=== PATIENT | female | born 1965 | race African-American/Black ===

== ENCOUNTER → 2017-04-12 | Outpatient (CLI) | payer MEDICARE, BC ==
--- NOTE | 2017-04-12 17:10 | RADIOLOGY REPORT (SQ) ---
EXAM DESCRIPTION: NM 3 PHASE BONE SCAN COMPLETED DATE/TIME: 04/12/2017 2:53 pm REASON FOR STUDY: PRIMARY OSTEOARTHRITIS, RIGHT KNEE (M17.11) M79.661 PAIN IN RIGHT LOWER LEG COMPARISON: No available imaging studies for comparison. RADIONUCLIDE AND DOSE: 20 millicuries Tc99m HDP. The route of agent administration: Intravenous. ADDITIONAL DRUGS AND DOSES: None. TECHNIQUE: Following injection of the radiopharmaceutical, serial blood flow images acquired. Equil ibrium blood pool images then acquired. Routine delayed images at 3 hours acquired of the areas of c linical concern with additional focused images as needed. AREA OF INTEREST: Knees LIMITATIONS: None. FINDINGS: VASCULAR FLOW IMAGES: There is minimal hyperemia in the left upper calf. BLOOD POOL IMAGES: There is slightly increased perfusion left upper calf. BONES: There is focal increased uptake in region of the articular surface of the right medial femoral condyle. KIDNEYS: Not included. OTHER: No other significant finding. IMPRESSION: 1. Questionable hyperemia increased blood pool left upper calf. It is possible that th is appearance is secondary to positioning. 2. There is focal increased uptake in the region articular surface the right medial femoral condyle suggesting degenerative change. COMMENT: Quality measure 147: Current bone scan is compared with any available plain radiographs, p rior bone scans, and CT/MRI. TECHNICAL DOCUMENTATION: JOB ID: [id number] [employer]- All Rights Reserved
== END ==
LOC: RAD 09:34
PROVIDERS: ATTEND Family Medicine
DX: M17.11 Unilateral primary osteoarthritis, right knee (principal)
CPT/HCPCS: 78315; A9561; Q9969

== ENCOUNTER 2017-11-16 20:28 | Emergency (ER) | payer MEDICARE, BC ==
[2017-11-16] MEDS ORDERED: ONDANSETRON 4 MG TAB.RAPDIS PO ONE (21:47)
[2017-11-16] MEDS ORDERED: MECLIZINE HCL 25 MG TABLET PO ONE (21:48)
--- NOTE | 2017-11-16 21:50 | ER Document Report ---
ED General - General Chief Complaint: Chest Pain Stated Complaint: CHEST PAIN Time Seen by Provider: 11/16/17 21:39 Notes: Patient is a 52-year-old female that comes to the emergency department with complaints of productive cough worsening for 1 week, dizziness with sensation of the world spinning around her intermittently, intermittent nausea with the dizziness, and generalized discomfort in her chest which is worse when she takes a deep breath. She now is coughing up intermittent green sputum. She denies fever or chills, vomiting, passing out. She does have a history of asthma, has been using her home inhaler and nebulizer slightly more than usual. Past medical history includes hypertension, pacemaker/defibrillator, she has never had an NC. She follows with cardiology Dr. Hernandez. TRAVEL OUTSIDE OF THE [place] IN LAST 30 DAYS: No COUNTRY TRAVELED TO/FROM: [facility] - Related Data Allergies/Adverse Reactions: sulfamethoxazole [From ] Adverse Reaction (Mild, Verified 11/18/14 08:34) trimethoprim [From ] Adverse Reaction (Mild, Verified 11/18/14 08:34) Past Medical History - General Information source: Patient - Social History Smoking Status: Never Smoker Frequency of alcohol use: None Drug Abuse: None Lives with: Alone Family History: CAD - sisters from [place] at ages 61 and 53, mom post [place] at 76 yo, Other - + CAD, DVT - Past Medical History Cardiac Medical History: Reports: Hx Atrial Fibrillation, Hx Coronary Artery Disease - hyperlipedemia, Hx Hypercholesterolemia, Hx Hypertension Denies: Hx Heart Attack Pulmonary Medical History: Reports: Hx Asthma, Hx Pneumonia Denies: Hx Bronchitis, Hx COPD Neurological Medical History: Reports: Hx Migraine. Denies: Hx Cerebrovascular Accident, Hx Seizures GI Medical History: Reports: Hx Gastroesophageal Reflux Disease Musculoskeltal Medical History: Denies Hx Arthritis Psychiatric Medical History: Reports: Hx Depression Past Surgical History: Reports: Hx Cardiac Surgery - pacer/defibrillator, Hx Orthopedic Surgery, Hx Pacemaker. Denies: Hx Hysterectomy - Immunizations Hx Diphtheria, Pertussis, Tetanus Vaccination: Yes Hx Pneumococcal Vaccination: 07/09/13 Review of Systems - Review of Systems Constitutional: No symptoms reported EENT: See HPI Cardiovascular: See HPI Respiratory: See HPI Gastrointestinal: See HPI Genitourinary: No symptoms reported Female Genitourinary: No symptoms reported Musculoskeletal: No symptoms reported Skin: No symptoms reported Hematologic/Lymphatic: No symptoms reported Neurological/Psychological: See HPI Physical Exam - Vital signs Vitals: Temp Pulse Resp BP Pulse Ox 98.6 F 62 15 143/89 H 96 11/16/17 21:24 11/16/17 21:24 11/16/17 21:24 11/16/17 21:24 11/16/17 21:24 - General General appearance: Appears well In distress: None - HEENT Head: Normocephalic, Atraumatic Eyes: Normal Extraocular movements intact: Yes Eyelashes: Normal Pupils: PERRL Ears: Normal External canal: Normal Tympanic membrane: Normal Sinus: Normal Nasal: Normal Mouth/Lips: Normal Mucous membranes: Normal Pharynx: Normal Neck: Normal - Respiratory Respiratory status: No respiratory distress. No: Respiratory distress, Retractions, Tachypnea Breath sounds: Nonproductive cough - Congested sounding nonproductive cough, intermittent. No: Rhonchi, Stridor, Wheezing - Cardiovascular Rhythm: Regular. No: Tachycardia Heart sounds: Normal auscultation, S1 appreciated, S2 appreciated - Abdominal Inspection: Normal Tenderness: Nontender. No: Tender, Guarding - Back Back: Normal, Nontender. No: Tender - Extremities General upper extremity: Normal inspection, Nontender, Normal strength, Normal temperature General lower extremity: Normal inspection, Nontender, Normal strength, Normal temperature. 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 No ST segment changes. Borderline QTc. However compared to prior to this has T-wave inversions in the same leads without significant change, similar QTC, no significant difference compared to prior. Patient with cold symptoms for 1 week with worsening congestive cough and now she states she has green sputum production. She does have congested cough on exam. She has no wheezing or respiratory distress, no hypoxia. No lower extremity swelling. Chest pain is worse with cough and with deep breathing. Patient does not have nystagmus or any signs of significant vertigo. Normal neurological exam. Treating with meclizine, workup pending. On reevaluation after Zofran and meclizin patient denies any sensation of spinning or dizziness. She still has congested cough. Chest x-ray, CBC, chemistry, unremarkable. Troponin indeterminate 0.021, this is identical to prior. Clinical picture is consistent with bronchitis with worsening productive cough and vestibular neuritis. Reevaluated patient at bedside, recommended cycle troponin, patient declined, request to leave. I feel this is appropriate because patient has had persistent symptoms for the past 2 days, low suspicion of ACS, PE, or life- threatening etiology. Discussed treatments, coverage because of productive cough in asthma patient, follow-up, return precautions, patient states understanding and agreement. - Vital Signs Vital signs: Temp Pulse Resp BP Pulse Ox 98.6 F 62 24 H 138/78 H 96 11/17/17 00:00 11/16/17 21:24 11/17/17 00:00 11/17/17 00:00 11/17/17 00:00 - Laboratory Result Diagrams: 11/16/17 22:55 11/16/17 22:55 Laboratory results interpreted by me: 11/16/17 22:55 Sodium 145.6 H Discharge - Discharge Clinical Impression: Productive cough, Dizziness, Vertigo Condition: Stable Disposition: HOME, SELF-CARE Additional Instructions: Your workup does not show any concerning abnormalities at this time. Your symptoms are consistent with bronchitis, developing vertigo from suspected labyrinthitis, and because of your developing productive cough we are covering you for potential pneumonia. Take antibiotics as prescribed, take the meclizine for the dizziness/vertigo as prescribed for the next several days, take the Zofran if needed for nausea, take the syrup if needed for cough (usually at night, do not next with stating medications, do not drive while taking). Follow-up with primary care. Return if you worsen including difficulty breathing, severe dizziness, vomiting, chest pain, passing out, or any other concerning symptoms. Prescriptions: Hydrocodone Bit/Homatropine [Hycodan Syrup 5-1.5 mg/5 ml Ud Cup] 5 ml PO Q4HP PRN #120 ml PRN Reason: Doxycycline Hyclate 100 mg PO BID #14 capsule Meclizine HCl [Bonine] 25 mg PO TID #24 tab.chew Referrals: JOSE ANTHONY MD [Primary Care Provider] - Follow up as needed
--- NOTE | 2017-11-16 23:20 | RADIOLOGY REPORT (SQ) ---
EXAM DESCRIPTION: XR CHEST 1 VIEW CLINICAL HISTORY: 52 years Female, cough, shortness of breath, chest pain COMPARISON: CR, report only, December 2013 NUMBER OF VIEWS/TECHNIQUE: 1/AP FINDINGS: Adequate lung volume, clear parenchyma, normal cardiac silhouette, and intact bony thorax. Left cardiac stimulator with leads. Likely benign focal sclerotic lesion/bone island of the right humeral head. IMPRESSION: No acute cardiopulmonary findings.
[2017-11-16 23:21] LABS: ALANINE AMINOTRANSFERASE 41 U/L (9-52); ALBUMIN 4.3 g/dL (3.5-5.0); ALKALINE PHOSPHATASE 110 U/L (38-126); ANION GAP 12 (5-19); ASPARTATE AMINO TRANSFERASE 25 U/L (14-36); BILIRUBIN,DIRECT 0.2 mg/dL (0.0-0.4); BILIRUBIN,TOTAL 0.3 mg/dL (0.2-1.3); BLOOD UREA NITROGEN 17 mg/dL (7-20); CALCIUM 9.3 mg/dL (8.4-10.2); CARBON DIOXIDE 28 mmol/L (22-30); CHLORIDE 106 mmol/L (98-107); CREATINE KINASE 92 U/L (30-135); GLUCOSE 92 mg/dL (75-110); POTASSIUM 3.8 mmol/L (3.6-5.0); SODIUM 145.6 mmol/L (137-145); TOTAL PROTEIN 6.8 g/dL (6.3-8.2)
[2017-11-16 23:26] LABS: ABSOLUTE BASOPHILS # (AUTO) 0.1 10^3/uL (0.0-0.2); ABSOLUTE EOSINOPHILS # (AUTO) 0.3 10^3/uL (0.0-0.6); ABSOLUTE LYMPHOCYTES (AUTO) 2.3 10^3/uL (0.5-4.7); ABSOLUTE MONOCYTES (AUTO) 0.3 10^3/uL (0.1-1.4); ABSOLUTE NEUT (AUTO) 3.3 10^3/uL (1.7-8.2); BASOPHILS % (AUTO) 1.1 % (0-2); EOSINOPHILS % (AUTO) 4.1 % (0-6); HEMATOCRIT 44.1 % (36.0-47.0); HEMOGLOBIN 14.5 g/dL (12.0-15.5); LYMPHOCYTES % (AUTO) 36.6 % (13-45); MEAN CORPUSCULAR HEMOGLOBIN 28.5 pg (27.0-33.4); MEAN CORPUSCULAR HGB CONC 32.9 g/dL (32.0-36.0); MEAN CORPUSCULAR VOLUME 87 fl (80-97); MONOCYTES % (AUTO) 4.7 % (3-13); PLATELET COUNT 193 10^3/uL (150-450); RED BLOOD COUNT 5.09 10^6/uL (3.72-5.28); RED CELL DISTRIBUTION WIDTH 13.9 % (11.5-14.0); SEGMENTED NEUTROPHILS % (AUTO) 53.5 % (42-78); TOTAL CELLS COUNTED % (AUTO) 100 %; WHITE BLOOD COUNT 6.2 10^3/uL (4.0-10.5)
[2017-11-16 23:32] LABS: CREATINE KINASE MB 0.73 ng/mL (<4.55); TROPONIN I 0.021 ng/mL
[2017-11-17 00:03] VITALS: BP 138/78
--- NOTE | 2017-11-17 07:11 | EKG REPORT ---
SEVERITY:- ABNORMAL ECG - SINUS RHYTHM JAVIER, CONSIDER BIATRIAL ABNORMALITIES PROBABLE LVH WITH SECONDARY REPOL ABNRM REPOL ABNRM, PROBABLE ISCHEMIA, ANT-LAT LEADS BORDERLINE PROLONGED QT INTERVAL : Confirmed by: Estuardo Goins MD 17-Nov-2017 07:11:15
== END 2017-11-17 00:09 | disposition home or self-care (01) ==
LOC: ER 20:28
DX: R05 Cough (principal); R42 Dizziness and giddiness; R07.9 Chest pain, unspecified; I48.91 Unspecified atrial fibrillation; E78.00 Pure hypercholesterolemia, unspecified; I10 Essential (primary) hypertension; K21.9 Gastro-esophageal reflux disease without esophagitis; I25.10 Atherosclerotic heart disease of native coronary artery without angina pectoris; Z88.3 Allergy status to other anti-infective agents; Z95.810 Presence of automatic (implantable) cardiac defibrillator
CPT/HCPCS: 93005; 99285; 36415; 82553; 82550; 85025; 80053; 84484; 71045; 93010; A9270 ×2; S0119

== ENCOUNTER → 2018-02-13 | Outpatient (CLI) | payer MEDICARE, BC ==
--- NOTE | 2018-02-13 15:01 | RADIOLOGY REPORT (SQ) ---
EXAM DESCRIPTION: CT ABD/PELVIS WITH IV ONLY COMPLETED DATE/TIME: 02/13/2018 2:05 pm REASON FOR STUDY: R10.0 ACUTE ABDOMEN R10.0 ACUTE ABDOMEN COMPARISON: None. TECHNIQUE: CT scan of the abdomen and pelvis performed using helical scanning technique with dynamic intravenous contrast injection. No oral contrast. Images reviewed with lung, soft tissue, and bone windows. Reconstructed coronal and sagittal MPR images reviewed. Delayed images for evaluation of the urinary system also acquired. All images stored on PACS. All CT scanners at this facility use dose modulation, iterative reconstruction, and/or weight based d osing when appropriate to reduce radiation dose to as low as reasonably achievable (ALARA). [facility]: Dose Right [facility]: CareDose [facility]: Dose Right [facility]: Teradose 4D [facility]: Shippter CONTRAST TYPE AND DOSE: contrast/concentration: Isovue 350.00 mg/ml; Total Contrast Delivered: 94.0 ml; Total Saline Delivered: 71.0 ml RENAL FUNCTION: Creatinine: 0.5 RADIATION DOSE: CT Rad equipment meets quality standard of care and radiation dose reduction techniq ues were employed. CTDIvol: 7.8 - 9.0 mGy. DLP: 860 mGy-cm.. LIMITATIONS: None. FINDINGS: LOWER CHEST: Ground-glass infiltrate within the lingula. Eventration left hemidiaphragm. Pacer defibrillator lead in place. LIVER: No abnormality. SPLEEN: No abnormality. PANCREAS: No abnormality. GALLBLADDER: No abnormality. ADRENAL GLANDS: No abnormality. RIGHT KIDNEY AND URETER: There is nonobstructive calculus in the lower pole right kidney. Rounded ar ea decreased attenuation posterior cortex of upper pole right kidney could represent cortical cyst. LEFT KIDNEY AND URETER: There is a nonobstructive calculus lower pole left kidney. AORTA AND VESSELS: No aneurysm. No dissection. Renal arteries, SMA, celiac without stenosis. Atheros clerotic change origin of celiac artery. RETROPERITONEUM: No retroperitoneal adenopathy, hemorrhage or masses. BOWEL AND PERITONEAL CAVITY: No masses or inflammatory changes. No free fluid or peritoneal masses. APPENDIX: Normal. PELVIS: Urinary bladder: No abnormality seen. ABDOMINAL WALL: No masses. No hernias. BONES: No significant or acute findings. IMPRESSION: Lingular infiltrate or atelectasis. Cortical cyst upper pole right kidney. Nonobstruct maia bilateral renal calculi . TECHNICAL DOCUMENTATION: JOB ID: [id number] Quality ID # [id number]: Final reports with documentation of one or more dose reduction techniques (e.g., Au tomated exposure control, adjustment of the mA and/or kV according to patient size, use of iterative reconstruction technique) 2010 [employer]- All Rights Reserved Reading location - IP/workstation name: [email or web address]
== END ==
LOC: RAD 13:39
PROVIDERS: ATTEND Specialist
DX: R10.0 Acute abdomen (principal)
CPT/HCPCS: 74177; 82565

== ENCOUNTER 2019-04-20 18:30 | Emergency (ER) | payer MEDICARE, BC ==
--- NOTE | 2019-04-20 18:56 | ER Document Report ---
ED Medical Screen (RME) - General Chief Complaint: Shortness Of Breath Stated Complaint: SHORTNESS OF BREATH Time Seen by Provider: 04/20/19 18:52 Primary Care Provider: KIKO HOLLAND MD [Primary Care Provider] - Follow up as needed Information source: Patient Notes: Patient presents complaining of shortness of breath for the past 2 days. Patient does report mild cough. No chest pain no fever. Patient states at nighttime when she lays down she notices wheezing. Patient also complains of occasional dizziness and weakness. Patient states her blood pressure has been running low recently although is normal in triage at this time. I have greeted and performed a rapid initial assessment of this patient. A comprehensive ED assessment and evaluation of the patient, analysis of test results and completion of the medical decision making process will be conducted by additional ED providers. TRAVEL OUTSIDE OF THE [place] IN LAST 30 DAYS: No COUNTRY TRAVELED TO/FROM: [facility] - Related Data Allergies/Adverse Reactions: sulfamethoxazole [From [facility]] Adverse Reaction (Mild, Verified 11/18/14 08:34) trimethoprim [From Feb] Adverse Reaction (Mild, Verified 11/18/14 08:34) Home Medications: albuterol, omeprazol, trazodone, wellbutrin, fioricet, aspirin, prazosin, flonase, celebrex, cymbalta, verapamil, simvastatin, tizanidine, spiriva, singulair, volataren Past Medical History - Social History Chew tobacco use (# tins/day): No Frequency of alcohol use: None Drug Abuse: None - Past Medical History Cardiac Medical History: Reports: Hx Atrial Fibrillation, Hx Coronary Artery Disease - hyperlipedemia, Hx Hypercholesterolemia, Hx Hypertension Denies: Hx Heart Attack Pulmonary Medical History: Reports: Hx Asthma, Hx Pneumonia Denies: Hx Bronchitis, Hx COPD Neurological Medical History: Reports: Hx Migraine. Denies: Hx Cerebrovascular Accident, Hx Seizures Renal/ Medical History: Denies: Hx Peritoneal Dialysis GI Medical History: Reports: Hx Gastroesophageal Reflux Disease Musculoskeltal Medical History: Denies Hx Arthritis Psychiatric Medical History: Reports: Hx Depression Past Surgical History: Reports: Hx Cardiac Surgery - pacer/defibrillator, Hx Orthopedic Surgery, Hx Pacemaker. Denies: Hx Hysterectomy - Immunizations Hx Diphtheria, Pertussis, Tetanus Vaccination: Yes Physical Exam - Vital signs Vitals: Temp Pulse Resp BP Pulse Ox 97.9 F 74 21 H 120/86 H 100 04/20/19 18:34 04/20/19 18:34 04/20/19 18:34 04/20/19 18:34 04/20/19 18:34 - Respiratory Respiratory status: No respiratory distress. No: Labored, Tachypnea Chest status: Nontender Breath sounds: Normal Chest palpation: Normal Course - Vital Signs Vital signs: Temp Pulse Resp BP Pulse Ox 97.9 F 74 21 H 120/86 H 100 04/20/19 18:34 04/20/19 18:34 04/20/19 18:34 04/20/19 18:34 04/20/19 18:34 Doctor's Discharge - Discharge Referrals: KIKO HOLLAND MD [Primary Care Provider] - Follow up as needed
--- NOTE | 2019-04-20 19:21 | ER Document Report ---
ED General - General Chief Complaint: Shortness Of Breath Stated Complaint: SHORTNESS OF BREATH Time Seen by Provider: 04/20/19 18:52 Primary Care Provider: KIKO HOLLAND MD [EMERITUS] - Follow up as needed CHARMAINE STROUD MD [ACTIVE STAFF] - Follow up tomorrow Notes: Patient is a 53 year old female with CHF that presents to the emergency department for chief complaint of shortness of breath, and orthopnea. Patient states his been having symptoms over the past several days with associated mild cough. She denies any associated chest pain, nausea, vomiting, fevers, chills, night sweats. She states she does have asthma and that she was having wheezing particular with lying down. She felt that is getting a little bit worse today so she decided come to the emergency department to be further evaluated. She states she occasionally feels lightheaded, but denies any syncopal episodes. Past Medical History: CHF, hypertrophic cardiomyopathy, hypertension, hyperlipidemia, asthma Past Surgical History: AICD pacemaker Social History: Denies tobacco, alcohol or drug use. Family History: Reviewed and noncontributory for presenting illness Allergies: Reviewed, see documented allergy list. REVIEW OF SYSTEMS: Other than noted above, the 12 point review of systems was reviewed with the patient and were negative, all pertinent findings are included in the HPI. PHYSICAL EXAMINATION: Vital signs reviewed, nursing noted reviewed. GENERAL: Well-appearing, well-nourished and in no acute distress. HEAD: Atraumatic, normocephalic. EYES: Eyes appear normal, extraocular movements intact, sclera anicteric, conjunctiva are normal. ENT: nares patent, oropharynx clear without exudates. Moist mucous membranes. NECK: Normal range of motion, supple without lymphadenopathy, no JVD LUNGS: Breath sounds clear to auscultation bilaterally and equal. No wheezes rales or rhonchi. HEART: Regular rate and rhythm without murmurs ABDOMEN: Soft, nontender, normoactive bowel sounds. No rebound, guarding, or rigidity. No masses appreciated. EXTREMITIES: Nontender, good range of motion, trace bilateral lower extremity pitting edema. NEUROLOGICAL: No focal neurological deficits. Moves all extremities spontaneously Motor and sensory grossly intact on exam. PSYCH: Normal mood, normal affect. SKIN: Warm, Dry, normal turgor, no rashes or lesions noted on exposed skin TRAVEL OUTSIDE OF THE [place] IN LAST 30 DAYS: No COUNTRY TRAVELED TO/FROM: [facility] - Related Data Allergies/Adverse Reactions: sulfamethoxazole [From ] Adverse Reaction (Mild, Verified 11/18/14 08:34) trimethoprim [From ] Adverse Reaction (Mild, Verified 11/18/14 08:34) Home Medications: albuterol, omeprazol, trazodone, wellbutrin, fioricet, aspirin, prazosin, flonase, celebrex, cymbalta, verapamil, simvastatin, tizanidine, spiriva, singulair, volataren Past Medical History - General Information source: Patient - Social History Smoking Status: Never Smoker Chew tobacco use (# tins/day): No Frequency of alcohol use: None Drug Abuse: None Family History: CAD - sisters from [place] at ages 61 and 53, mom post [place] at 76 yo, Other - + CAD, DVT Patient has suicidal ideation: No Patient has homicidal ideation: No - Past Medical History Cardiac Medical History: Reports: Hx Atrial Fibrillation, Hx Coronary Artery Disease - hyperlipedemia, Hx Hypercholesterolemia, Hx Hypertension Denies: Hx Heart Attack Pulmonary Medical History: Reports: Hx Asthma, Hx Pneumonia Denies: Hx Bronchitis, Hx COPD Neurological Medical History: Reports: Hx Migraine. Denies: Hx Cerebrovascular Accident, Hx Seizures Renal/ Medical History: Denies: Hx Peritoneal Dialysis GI Medical History: Reports: Hx Gastroesophageal Reflux Disease Musculoskeletal Medical History: Denies Hx Arthritis Psychiatric Medical History: Reports: Hx Depression Past Surgical History: Reports: Hx Cardiac Surgery - pacer/defibrillator, Hx Orthopedic Surgery, Hx Pacemaker. Denies: Hx Hysterectomy - Immunizations Hx Diphtheria, Pertussis, Tetanus Vaccination: Yes Hx Pneumococcal Vaccination: 07/09/13 Physical Exam - Vital signs Vitals: Temp Pulse Resp BP Pulse Ox 97.9 F 74 21 H 120/86 H 100 04/20/19 18:34 04/20/19 18:34 04/20/19 18:34 04/20/19 18:34 04/20/19 18:34 Course - Re-evaluation Re-evalutation: Patient seen and examined vital signs reviewed. Laboratory data and/or imaging were ordered as appropriate for the patient's presenting symptoms and complaint, with consideration of any critical or life threatening conditions that may be associated with their obtained history and exam as noted above. Patient was treated with p.o. Lasix and DuoNeb breathing treatment Results were reviewed when available and demonstrated unremarkable blood work, chest x-ray did demonstrate some pulmonary edema, mild in degree. I discussed this case with the patient's public address system mechanic, who recommended only low-dose Lasix of 10 mg daily and to follow-up with him and call for an appointment tomorrow. The patient was re-evaluated and was stable, not hypoxic Evaluation was most consistent with CHF, pulmonary edema. Results were discussed with the patient at this point, after careful consideration I feel that that patient can be discharged from the emergency department, the patient was educated treatments and reasons to return to the emergency department based on their presumed diagnosis as noted above, they were advised to followup with a primary care physician in 2-3 days. Patient was agreeable to plan of care. *Note is created using voice recognition software and may contain spelling, syntax or grammatical errors. Laboratory 04/20/19 04/20/19 04/20/19 19:00 19:35 19:35 WBC 4.7 RBC 4.78 Hgb 13.2 Hct 40.6 MCV 85 MCH 27.7 MCHC 32.5 RDW 13.7 Plt Count 179 Lymph % (Auto) 34.5 Ada % (Auto) 5.9 Eos % (Auto) 3.0 Baso % (Auto) 0.3 Absolute Neuts (auto) 2.7 Absolute Lymphs (auto) 1.6 Absolute Monos (auto) 0.3 Absolute Eos (auto) 0.1 Absolute Basos (auto) 0.0 Seg Neutrophils % 56.3 Sodium 143.0 Potassium 4.1 Chloride 111 H Carbon Dioxide 25 Anion Gap 7 BUN 19 Creatinine 0.88 Est GFR ( Amer) > 60 Est GFR (MDRD) Non-Af > 60 Glucose 110 Calcium 9.4 Total Bilirubin 0.6 Direct Bilirubin 0.0 Neonat Total Bilirubin Not Reportable Neonat Direct Bilirubin Not Reportable Neonat Indirect Bili Not Reportable AST 26 ALT 21 Alkaline Phosphatase 101 Troponin I NT-Pro-B Natriuret Pep Total Protein 6.6 Albumin 3.9 Urine Color YELLOW Urine Appearance CLEAR Urine pH 5.0 Ur Specific [place] 1.025 Urine Protein NEGATIVE Urine Glucose (UA) NEGATIVE Urine Ketones NEGATIVE Urine Blood NEGATIVE Urine Nitrite NEGATIVE Urine Bilirubin NEGATIVE Urine Urobilinogen 2.0 H Ur Leukocyte Esterase NEGATIVE Urine WBC (Auto) 2 Urine RBC (Auto) 1 Squamous Epi Cells Auto 1 Urine Mucus (Auto) RARE Urine Ascorbic Acid 40 H 04/20/19 19:35 WBC RBC Hgb Hct MCV MCH MCHC RDW Plt Count Lymph % (Auto) Ada % (Auto) Eos % (Auto) Baso % (Auto) Absolute Neuts (auto) Absolute Lymphs (auto) Absolute Monos (auto) Absolute Eos (auto) Absolute Basos (auto) Seg Neutrophils % Sodium Potassium Chloride Carbon Dioxide Anion Gap BUN Creatinine Est GFR ( Amer) Est GFR (MDRD) Non-Af Glucose Calcium Total Bilirubin Direct Bilirubin Neonat Total Bilirubin Neonat Direct Bilirubin Neonat Indirect Bili AST ALT Alkaline Phosphatase Troponin I 0.014 NT-Pro-B Natriuret Pep 1450 H Total Protein Albumin Urine Color Urine Appearance Urine pH Ur Specific [place] Urine Protein Urine Glucose (UA) Urine Ketones Urine Blood Urine Nitrite Urine Bilirubin Urine Urobilinogen Ur Leukocyte Esterase Urine WBC (Auto) Urine RBC (Auto) Squamous Epi Cells Auto Urine Mucus (Auto) Urine Ascorbic Acid Chest X-Ray 04/20/19 18:55 IMPRESSION: Mild diffuse interstitial pulmonary opacity, likely mild edema in the setting of cardiomegaly. - Vital Signs Vital signs: Temp Pulse Resp BP Pulse Ox 97.9 F 74 28 H 125/76 96 04/20/19 18:34 04/20/19 18:34 04/20/19 22:00 04/20/19 22:00 04/20/19 22:00 - Laboratory Result Diagrams: 04/20/19 19:35 04/20/19 19:35 Laboratory results interpreted by me: 04/20/19 04/20/19 04/20/19 19:00 19:35 19:35 Chloride 111 H NT-Pro-B Natriuret Pep 1450 H Urine Urobilinogen 2.0 H Urine Ascorbic Acid 40 H - EKG Interpretation by Me Additional EKG results interpreted by me: EKG demonstrates sinus rhythm with a ventricular rate of 67 bpm, normal axis, QTC 494 ms, T wave inversions noted in leads I, 2, aVF, V3 through V6, compared to prior EKG without significant change. Discharge - Discharge Clinical Impression: CHF (congestive heart failure) Qualifiers: Heart failure type: other Qualified Code(s): I50.9 - Heart failure, unspecified Pulmonary edema Qualifiers: Chronicity: acute Qualified Code(s): J81.0 - Acute pulmonary edema Condition: Stable Disposition: HOME, SELF-CARE Instructions: Congestive Heart Failure ([facility]) Prescriptions: Furosemide [Lasix] 10 mg PO DAILY #7 tablet Referrals: KIKO HOLLAND MD [EMERITUS] - Follow up as needed CHARMAINE STROUD MD [ACTIVE STAFF] - Follow up tomorrow
[2019-04-20 19:30] LABS: APPEARANCE,URINE CLEAR; BILIRUBIN,URINE NEGATIVE (NEGATIVE); COLOR,URINE YELLOW; GLUCOSE, URINE NEGATIVE (NEGATIVE); KETONES,URINE NEGATIVE (NEGATIVE); LEUKOCYTE ESTERASE,URINE NEGATIVE (NEGATIVE); NITRITE,URINE NEGATIVE (NEGATIVE); PROTEIN,URINE NEGATIVE (NEGATIVE); URINE SPECIFIC GRAVITY 1.025
--- NOTE | 2019-04-20 19:34 | RADIOLOGY REPORT (SQ) ---
EXAM DESCRIPTION: CHEST 2 VIEWS COMPLETED DATE/TIME: 04/20/2019 7:21 pm REASON FOR STUDY: sob COMPARISON: 01/19/2014 EXAM PARAMETERS: NUMBER OF VIEWS: two views TECHNIQUE: Digital Frontal and Lateral radiographic views of the chest acquired. RADIATION DOSE: NA LIMITATIONS: none FINDINGS: LUNGS AND PLEURA: Mild diffuse interstitial pulmonary opacity. MEDIASTINUM AND HILAR STRUCTURES: No masses or contour abnormalities. HEART AND VASCULAR STRUCTURES: Cardiomegaly with left chest multi lead pacer defibrillator. BONES: No acute findings. HARDWARE: None in the chest. OTHER: No other significant finding. IMPRESSION: Mild diffuse interstitial pulmonary opacity, likely mild edema in the setting of cardiom egaly. TECHNICAL DOCUMENTATION: JOB ID: [id number] [employer]- All Rights Reserved Reading location - IP/workstation name: [email or web address]
[2019-04-20] MEDS ORDERED: IPRATROPIUM/ALBUTEROL 0.5-2.5 MG/3 ML AMPUL NEB ONE (19:40)
[2019-04-20 20:08] LABS: ABSOLUTE EOSINOPHILS # (AUTO) 0.1 10^3/uL (0.0-0.6); ABSOLUTE LYMPHOCYTES (AUTO) 1.6 10^3/uL (0.5-4.7); ABSOLUTE MONOCYTES (AUTO) 0.3 10^3/uL (0.1-1.4); ABSOLUTE NEUT (AUTO) 2.7 10^3/uL (1.7-8.2); BASOPHILS % (AUTO) 0.3 % (0-2); HEMATOCRIT 40.6 % (36.0-47.0); HEMOGLOBIN 13.2 g/dL (12.0-15.5); LYMPHOCYTES % (AUTO) 34.5 % (13-45); MEAN CORPUSCULAR HEMOGLOBIN 27.7 pg (27.0-33.4); MEAN CORPUSCULAR HGB CONC 32.5 g/dL (32.0-36.0); MEAN CORPUSCULAR VOLUME 85 fl (80-97); MONOCYTES % (AUTO) 5.9 % (3-13); PLATELET COUNT 179 10^3/uL (150-450); RED BLOOD COUNT 4.78 10^6/uL (3.72-5.28); RED CELL DISTRIBUTION WIDTH 13.7 % (11.5-14.0); SEGMENTED NEUTROPHILS % (AUTO) 56.3 % (42-78); TOTAL CELLS COUNTED % (AUTO) 100 %; WHITE BLOOD COUNT 4.7 10^3/uL (4.0-10.5)
[2019-04-20 20:27] LABS: ALBUMIN 3.9 g/dL (3.5-5.0); ALKALINE PHOSPHATASE 101 U/L (38-126); ANION GAP 7 (5-19); ASPARTATE AMINO TRANSFERASE 26 U/L (14-36); BILIRUBIN,TOTAL 0.6 mg/dL (0.2-1.3); BLOOD UREA NITROGEN 19 mg/dL (7-20); CALCIUM 9.4 mg/dL (8.4-10.2); CARBON DIOXIDE 25 mmol/L (22-30); CHLORIDE 111 mmol/L (98-107); GLUCOSE 110 mg/dL (75-110); POTASSIUM 4.1 mmol/L (3.6-5.0); TOTAL PROTEIN 6.6 g/dL (6.3-8.2)
[2019-04-20 20:39] LABS: TROPONIN I 0.014 ng/mL
[2019-04-20] MEDS ORDERED: FUROSEMIDE 20 MG TABLET PO ONE (21:49)
[2019-04-20 22:03] VITALS: BP 125/76
--- NOTE | 2019-04-20 22:54 | EKG REPORT ---
SEVERITY:- ABNORMAL ECG - SINUS RHYTHM LEFT ATRIAL ABNORMALITY REPOL ABNRM SUGGESTS ISCHEMIA, ANT-LAT LEADS BORDERLINE PROLONGED QT INTERVAL : Confirmed by: Jenni Jackson MD 20-Apr-2019 22:53:27
== END 2019-04-20 22:06 | disposition home or self-care (01) ==
LOC: ER 18:30
DX: I10 Essential (primary) hypertension (principal); J81.0 Acute pulmonary edema; R06.02 Shortness of breath; I48.91 Unspecified atrial fibrillation; I25.10 Atherosclerotic heart disease of native coronary artery without angina pectoris; E78.00 Pure hypercholesterolemia, unspecified; Z95.810 Presence of automatic (implantable) cardiac defibrillator; Z88.3 Allergy status to other anti-infective agents
CPT/HCPCS: 93005; 36415; 85025; 80053; 81001; 84484; 83880; 71046; 93010; A9270 ×2; 94640; 99285; J7620